=== PATIENT | female | born 1995 | race Hispanic/Latino ===

== ENCOUNTER 2020-05-22 18:38 | Emergency (ER) | payer SELFPAY ==
[2020-05-22] MEDS ORDERED: NALOXONE 2 MG/2 ML INJ IV ONE (20:04)
[2020-05-22] MEDS ORDERED: SODIUM CHLORIDE 0.9% 1000 ML 1,000 ML IV ONE (20:05)
--- NOTE | 2020-05-22 20:25 | Emergency Department Report ---
HPI - HPI HPI: Room 10 The patient is a 24-year-old female present with a chief complaint of altered mental status. Per the patient's mother the patient has recently gone through a divorce has not been taking it well. The mother states she found the patient unresponsive on the floor this evening and there was an empty bottle of [employer] rum the kitchen. The mother states the patient does not consume alc ohol. The mother states there were no missing medications in the home and no pill bottles found near the patient. The mother states the patient has not made any statements regarding suicidal ideation. The patient is grossly obtunded but opens her eyes to sternal rub <CLVIE JONES - Last Filed: 05/22/20 20:21> <COLLINS DE LEON - Last Filed: 05/23/20 04:16> - General Chief Complaint: Alcohol Time Seen by Provider: 05/22/20 19:39 ED Past Medical Hx - Past Medical History Hx Psychiatric Treatment: Yes (depression, anxiety) Additional medical history: seasonal bronchitis - Surgical History Past Surgical History?: No - Family History Family history: no significant - Social History Smoking Status: Former Smoker Substance Use Type: None <CLIVE JONES - Last Filed: 05/22/20 20:21> <COLLINS DE LEON - Last Filed: 05/23/20 04:16> - Medications Home Medications: Home Medications Medication Instructions Recorded Confirmed Last Taken Type Multivitamin with Folic Acid [[facility] 400 mcg PO QDAY #30 tablet 05/23/20 Unknown Rx One Daily Essential Tablet] Potassium Chloride [K-Dur] 20 meq PO BID #20 tab 05/23/20 Unknown Rx ED Review of Systems ROS: Stated complaint: SI ATTEMPT/OVERDOSE Other details as noted in HPI Comment: Unobtainable due to pts medical conditions <CLIVE JONES - Last Filed: 05/22/20 20:21> ROS: Stated complaint: SI ATTEMPT/OVERDOSE Other details as noted in HPI <COLLINS DE LEON - Last Filed: 05/23/20 04:16> Physical Exam - Physical Exam Physical Exam: GENERAL: The patient is well-developed well-nourished female grossly obtunded on stretcher only responding to sternal rub. [] HEENT: Normocephalic. Atraumatic. Patient has moist mucous membranes. NECK: Trachea midline CHEST/LUNGS: Clear to auscultation. There is no respiratory distress noted. HEART/CARDIOVASCULAR: Regular. There is no tachycardia. There is no gallop rub or murmur. ABDOMEN: Abdomen is soft, nontender. Patient has normal bowel sounds. There is no abdominal distention. SKIN: There is no rash. There is no edema. There is no diaphoresis. NEURO: The patient is grossly obtunded but opens eyes and raise his head to sternal rub MUSCULOSKELETAL: There is no evidence of acute injury. <CLIVE JONES - Last Filed: 05/22/20 20:21> - Physical Exam Vital Signs: Vital Signs 05/22/20 05/22/20 05/22/20 20:28 21:00 21:27 Temperature 97.8 F Pulse Rate 75 71 Respiratory 19 19 16 Rate Blood Pressure 111/54 Blood Pressure 111/54 [Right] O2 Sat by Pulse 98 99 Oximetry 05/22/20 05/22/20 05/23/20 22:00 23:00 01:00 Temperature Pulse Rate 79 98 H 78 Respiratory 17 21 16 Rate Blood Pressure 129/69 129/69 98/51 Blood Pressure [Right] O2 Sat by Pulse Oximetry <COLLINS DE LEON - Last Filed: 05/23/20 04:16> ED Course Vital Signs 05/22/20 05/22/20 05/22/20 20:28 21:00 21:27 Temperature 97.8 F Pulse Rate 75 71 Respiratory 19 19 16 Rate Blood Pressure 111/54 Blood Pressure 111/54 [Right] O2 Sat by Pulse 98 99 Oximetry 05/22/20 05/22/20 05/23/20 22:00 23:00 01:00 Temperature Pulse Rate 79 98 H 78 Respiratory 17 21 16 Rate Blood Pressure 129/69 129/69 98/51 Blood Pressure [Right] O2 Sat by Pulse Oximetry - Reevaluation(s) Reevaluation #1: 05/23/20 04:13 Patient is awake, alert, oriented, clinically sober and walks with a steady gait. She tells me "I just drank too much alcohol." She denies physical pain at this time. She denies homicidality and suicidality. She does not want to speak to a psychiatrist or mental health professional. She wants to go home. The patient does not meet criteria for 1013 at this time. Laboratory studies reviewed and appreciated. Patient will be discharged her mother is going to come by and pick her up <MOISESCOLLINS - Last Filed: 05/23/20 04:16> ED Medical Decision Making - Differential Diagnosis Alcohol intoxication, polysubstance abuse, intracranial hemorrhage, <CLIVE JONES - Last Filed: 05/22/20 20:21> - Lab Data Result diagrams: 05/22/20 20:23 05/22/20 20:23 Vital Signs 05/22/20 05/22/20 05/22/20 20:28 21:00 21:27 Temperature 97.8 F Pulse Rate 75 71 Respiratory 19 19 16 Rate Blood Pressure 111/54 Blood Pressure 111/54 [Right] O2 Sat by Pulse 98 99 Oximetry 05/22/20 05/22/20 05/23/20 22:00 23:00 01:00 Temperature Pulse Rate 79 98 H 78 Respiratory 17 21 16 Rate Blood Pressure 129/69 129/69 98/51 Blood Pressure [Right] O2 Sat by Pulse Oximetry Lab Results 05/22/20 05/22/20 05/22/20 Range/Units 20:23 20:23 20:23 WBC 9.1 (4.5-11.0) K/mm3 RBC 4.45 (3.65-5.03) M/mm3 Hgb 11.0 (10.1-14.3) gm/dl Hct 35.6 (30.3-42.9) % MCV 80 (79-97) fl MCH 25 L (28-32) pg MCHC 31 (30-34) % RDW 16.3 H (13.2-15.2) % Plt Count 225 (140-440) K/mm3 Lymph % (Auto) 12.2 L (13.4-35.0) % [place] % (Auto) 6.4 (0.0-7.3) % Eos % (Auto) 0.1 (0.0-4.3) % Baso % (Auto) 0.2 (0.0-1.8) % Lymph # 1.1 L (1.2-5.4) K/mm3 [place] # 0.6 (0.0-0.8) K/mm3 Eos # 0.0 (0.0-0.4) K/mm3 Baso # 0.0 (0.0-0.1) K/mm3 Seg Neutrophils % 81.1 H (40.0-70.0) % Seg Neutrophils # 7.4 (1.8-7.7) K/mm3 Sodium 139 (137-145) mmol/L Potassium 3.2 L (3.6-5.0) mmol/L Chloride 101.9 (98-107) mmol/L Carbon Dioxide 19 L (22-30) mmol/L Anion Gap 21 mmol/L BUN 9 (7-17) mg/dL Creatinine 0.5 L (0.7-1.2) mg/dL Estimated GFR > 60 ml/min BUN/Creatinine Ratio 18 % Glucose 130 H (65-100) mg/dL Calcium 8.5 (8.4-10.2) mg/dL Magnesium (1.7-2.3) mg/dL Total Bilirubin 0.20 (0.1-1.2) mg/dL AST 17 (5-40) units/L ALT 9 (7-56) units/L Alkaline Phosphatase 82 (35-129) units/L Total Creatine Kinase 113 (30-135) units/L CK-MB (CK-2) 1.0 (0.0-4.0) ng/mL CK-MB (CK-2) Rel Index 0.8 (0-4) Troponin T < 0.010 (0.00-0.029) ng/mL Total Protein 7.2 (6.3-8.2) g/dL Albumin 4.1 (3.9-5) g/dL Albumin/Globulin Ratio 1.3 % HCG, Qual (Negative) Urine Color (Yellow) Urine Turbidity (Clear) Urine pH (5.0-7.0) Ur Specific Alpha (1.003-1.030) Urine Protein (Negative) mg/dL Urine Glucose (UA) (Negative) mg/dL Urine Ketones (Negative) mg/dL Urine Blood (Negative) Urine Nitrite (Negative) Urine Bilirubin (Negative) Urine Urobilinogen (<2.0) mg/dL Ur Leukocyte Esterase (Negative) Urine WBC (Auto) (0.0-6.0) /HPF Urine RBC (Auto) (0.0-6.0) /HPF U Epithel Cells (Auto) (0-13.0) /HPF Urine Bacteria (Auto) (Negative) /HPF Urine Mucus /HPF Salicylates (2.8-20.0) mg/dL Urine Opiates Screen Urine Methadone Screen Acetaminophen (10.0-30.0) ug/mL Ur Barbiturates Screen Ur Phencyclidine Scrn Ur Amphetamines Screen U Benzodiazepines Scrn Urine Cocaine Screen U Marijuana (THC) Screen Drugs of Abuse Note Plasma/Serum Alcohol 0.21 H (0-0.07) % 05/22/20 05/22/20 05/22/20 Range/Units 20:23 20:32 20:32 WBC (4.5-11.0) K/mm3 RBC (3.65-5.03) M/mm3 Hgb (10.1-14.3) gm/dl Hct (30.3-42.9) % MCV (79-97) fl MCH (28-32) pg MCHC (30-34) % RDW (13.2-15.2) % Plt Count (140-440) K/mm3 Lymph % (Auto) (13.4-35.0) % [place] % (Auto) (0.0-7.3) % Eos % (Auto) (0.0-4.3) % Baso % (Auto) (0.0-1.8) % Lymph # (1.2-5.4) K/mm3 [place] # (0.0-0.8) K/mm3 Eos # (0.0-0.4) K/mm3 Baso # (0.0-0.1) K/mm3 Seg Neutrophils % (40.0-70.0) % Seg Neutrophils # (1.8-7.7) K/mm3 Sodium (137-145) mmol/L Potassium (3.6-5.0) mmol/L Chloride (98-107) mmol/L Carbon Dioxide (22-30) mmol/L Anion Gap mmol/L BUN (7-17) mg/dL Creatinine (0.7-1.2) mg/dL Estimated GFR ml/min BUN/Creatinine Ratio % Glucose (65-100) mg/dL Calcium (8.4-10.2) mg/dL Magnesium (1.7-2.3) mg/dL Total Bilirubin (0.1-1.2) mg/dL AST (5-40) units/L ALT (7-56) units/L Alkaline Phosphatase (35-129) units/L Total Creatine Kinase (30-135) units/L CK-MB (CK-2) (0.0-4.0) ng/mL CK-MB (CK-2) Rel Index (0-4) Troponin T (0.00-0.029) ng/mL Total Protein (6.3-8.2) g/dL Albumin (3.9-5) g/dL Albumin/Globulin Ratio % HCG, Qual Negative (Negative) Urine Color (Yellow) Urine Turbidity (Clear) Urine pH (5.0-7.0) Ur Specific Alpha (1.003-1.030) Urine Protein (Negative) mg/dL Urine Glucose (UA) (Negative) mg/dL Urine Ketones (Negative) mg/dL Urine Blood (Negative) Urine Nitrite (Negative) Urine Bilirubin (Negative) Urine Urobilinogen (<2.0) mg/dL Ur Leukocyte Esterase (Negative) Urine WBC (Auto) (0.0-6.0) /HPF Urine RBC (Auto) (0.0-6.0) /HPF U Epithel Cells (Auto) (0-13.0) /HPF Urine Bacteria (Auto) (Negative) /HPF Urine Mucus /HPF Salicylates < 0.3 L (2.8-20.0) mg/dL Urine Opiates Screen Urine Methadone Screen Acetaminophen < 5.0 L (10.0-30.0) ug/mL Ur Barbiturates Screen Ur Phencyclidine Scrn Ur Amphetamines Screen U Benzodiazepines Scrn Urine Cocaine Screen U Marijuana (THC) Screen Drugs of Abuse Note Plasma/Serum Alcohol (0-0.07) % 05/22/20 05/22/20 05/23/20 Range/Units Unknown Unknown 02:57 WBC (4.5-11.0) K/mm3 RBC (3.65-5.03) M/mm3 Hgb (10.1-14.3) gm/dl Hct (30.3-42.9) % MCV (79-97) fl MCH (28-32) pg MCHC (30-34) % RDW (13.2-15.2) % Plt Count (140-440) K/mm3 Lymph % (Auto) (13.4-35.0) % [place] % (Auto) (0.0-7.3) % Eos % (Auto) (0.0-4.3) % Baso % (Auto) (0.0-1.8) % Lymph # (1.2-5.4) K/mm3 [place] # (0.0-0.8) K/mm3 Eos # (0.0-0.4) K/mm3 Baso # (0.0-0.1) K/mm3 Seg Neutrophils % (40.0-70.0) % Seg Neutrophils # (1.8-7.7) K/mm3 Sodium (137-145) mmol/L Potassium (3.6-5.0) mmol/L Chloride (98-107) mmol/L Carbon Dioxide (22-30) mmol/L Anion Gap mmol/L BUN (7-17) mg/dL Creatinine (0.7-1.2) mg/dL Estimated GFR ml/min BUN/Creatinine Ratio % Glucose (65-100) mg/dL Calcium (8.4-10.2) mg/dL Magnesium 2.20 (1.7-2.3) mg/dL Total Bilirubin (0.1-1.2) mg/dL AST (5-40) units/L ALT (7-56) units/L Alkaline Phosphatase (35-129) units/L Total Creatine Kinase 120 (30-135) units/L CK-MB (CK-2) (0.0-4.0) ng/mL CK-MB (CK-2) Rel Index (0-4) Troponin T (0.00-0.029) ng/mL Total Protein (6.3-8.2) g/dL Albumin (3.9-5) g/dL Albumin/Globulin Ratio % HCG, Qual (Negative) Urine Color Straw (Yellow) Urine Turbidity Clear (Clear) Urine pH 5.0 (5.0-7.0) Ur Specific Alpha 1.009 (1.003-1.030) Urine Protein <15 mg/dl (Negative) mg/dL Urine Glucose (UA) Neg (Negative) mg/dL Urine Ketones 20 (Negative) mg/dL Urine Blood Lg (Negative) Urine Nitrite Neg (Negative) Urine Bilirubin Neg (Negative) Urine Urobilinogen < 2.0 (<2.0) mg/dL Ur Leukocyte Esterase Neg (Negative) Urine WBC (Auto) 2.0 (0.0-6.0) /HPF Urine RBC (Auto) 15.0 (0.0-6.0) /HPF U Epithel Cells (Auto) 1.0 (0-13.0) /HPF Urine Bacteria (Auto) 1+ (Negative) /HPF Urine Mucus Few /HPF Salicylates (2.8-20.0) mg/dL Urine Opiates Screen Presumptive negative Urine Methadone Screen Presumptive negative Acetaminophen (10.0-30.0) ug/mL Ur Barbiturates Screen Presumptive negative Ur Phencyclidine Scrn Presumptive negative Ur Amphetamines Screen Presumptive negative U Benzodiazepines Scrn Presumptive negative Urine Cocaine Screen Presumptive negative U Marijuana (THC) Screen Presumptive negative Drugs of Abuse Note Disclamer Plasma/Serum Alcohol (0-0.07) % 05/23/20 Range/Units 02:57 WBC (4.5-11.0) K/mm3 RBC (3.65-5.03) M/mm3 Hgb (10.1-14.3) gm/dl Hct (30.3-42.9) % MCV (79-97) fl MCH (28-32) pg MCHC (30-34) % RDW (13.2-15.2) % Plt Count (140-440) K/mm3 Lymph % (Auto) (13.4-35.0) % [place] % (Auto) (0.0-7.3) % Eos % (Auto) (0.0-4.3) % Baso % (Auto) (0.0-1.8) % Lymph # (1.2-5.4) K/mm3 [place] # (0.0-0.8) K/mm3 Eos # (0.0-0.4) K/mm3 Baso # (0.0-0.1) K/mm3 Seg Neutrophils % (40.0-70.0) % Seg Neutrophils # (1.8-7.7) K/mm3 Sodium (137-145) mmol/L Potassium (3.6-5.0) mmol/L Chloride (98-107) mmol/L Carbon Dioxide (22-30) mmol/L Anion Gap mmol/L BUN (7-17) mg/dL Creatinine (0.7-1.2) mg/dL Estimated GFR ml/min BUN/Creatinine Ratio % Glucose (65-100) mg/dL Calcium (8.4-10.2) mg/dL Magnesium (1.7-2.3) mg/dL Total Bilirubin (0.1-1.2) mg/dL AST (5-40) units/L ALT (7-56) units/L Alkaline Phosphatase (35-129) units/L Total Creatine Kinase (30-135) units/L CK-MB (CK-2) (0.0-4.0) ng/mL CK-MB (CK-2) Rel Index (0-4) Troponin T (0.00-0.029) ng/mL Total Protein (6.3-8.2) g/dL Albumin (3.9-5) g/dL Albumin/Globulin Ratio % HCG, Qual (Negative) Urine Color (Yellow) Urine Turbidity (Clear) Urine pH (5.0-7.0) Ur Specific Alpha (1.003-1.030) Urine Protein (Negative) mg/dL Urine Glucose (UA) (Negative) mg/dL Urine Ketones (Negative) mg/dL Urine Blood (Negative) Urine Nitrite (Negative) Urine Bilirubin (Negative) Urine Urobilinogen (<2.0) mg/dL Ur Leukocyte Esterase (Negative) Urine WBC (Auto) (0.0-6.0) /HPF Urine RBC (Auto) (0.0-6.0) /HPF U Epithel Cells (Auto) (0-13.0) /HPF Urine Bacteria (Auto) (Negative) /HPF Urine Mucus /HPF Salicylates (2.8-20.0) mg/dL Urine Opiates Screen Urine Methadone Screen Acetaminophen (10.0-30.0) ug/mL Ur Barbiturates Screen Ur Phencyclidine Scrn Ur Amphetamines Screen U Benzodiazepines Scrn Urine Cocaine Screen U Marijuana (THC) Screen Drugs of Abuse Note Plasma/Serum Alcohol 0.08 H (0-0.07) % <COLLINS DE LEON - Last Filed: 05/23/20 04:16> Critical care attestation.: If time is entered above; I have spent that time in minutes in the direct care of this critically ill patient, excluding procedure time. <CLIVE JONES - Last Filed: 05/22/20 20:21> Critical care attestation.: If time is entered above; I have spent that time in minutes in the direct care of this critically ill patient, excluding procedure time. <COLLINS DE LEON - Last Filed: 05/23/20 04:16> ED Disposition <CLIVE JONES - Last Filed: 05/22/20 20:21> Is pt being admited?: No Does the pt Need Aspirin: No <COLLINS DE LEON - Last Filed: 05/23/20 04:16> Clinical Impression: Alcohol intoxication, Hypokalemia Disposition: DC-01 TO HOME OR SELFCARE Condition: Stable Instructions: Alcohol Intoxication (ED) Additional Instructions: Please exercise caution when consuming alcohol. Long-term consumption of alcohol may cause depressed mental status, disability, paralysis, loss of quality of life. Take the medications as needed and directed. Follow-up with your primary care doctor within the next week. Recommend that patient does not drive or operate motor vehicles until instructed/cleared to do so by her primary care doctor. Please return to the emergency room right away with new pain, worsening pain, migration of pain, projectile vomiting, change in mental status, confusion, inability to tolerate liquid feeds, new, worsened or different symptoms not present on the initial emergency room evaluation Referrals: RENEA MANUEL MD [Staff Physician] - 3-5 Days
[2020-05-22 21:07] LABS: Basophils % (Auto) 0.2 % (0.0-1.8); Eosinophils % (Auto) 0.1 % (0.0-4.3); Hematocrit 35.6 % (30.3-42.9); Lymphocytes # (Auto) 1.1 K/mm3 (1.2-5.4); Lymphocytes % (Auto) 12.2 % (13.4-35.0); Mean Corpuscular HGB Conc 31 % (30-34); Mean Corpuscular Volume 80 fl (79-97); Monocytes # (Auto) 0.6 K/mm3 (0.0-0.8); Monocytes % (Auto) 6.4 % (0.0-7.3); Platelet Count 225 K/mm3 (140-440); Red Blood Count 4.45 M/mm3 (3.65-5.03); Red Cell Distribution Width 16.3 % (13.2-15.2)
[2020-05-22 21:45] LABS: BUN/Creatinine Ratio 18; Blood Urea Nitrogen 9 mg/dL (7-17)
[2020-05-22 21:46] LABS: Alanine Aminotransferase 9 units/L (7-56); Albumin 4.1 g/dL (3.9-5); Calcium 8.5 mg/dL (8.4-10.2)
[2020-05-22 21:47] LABS: Hemolysis Index 8
[2020-05-22 22:06] LABS: Bacteria,Urine 1+ /HPF (Negative); Bilirubin,Urine NEG (Negative); Blood,Urine LG (Negative); Color,Urine Straw (Yellow); Mucus,Urine FEW /HPF; Protein,Urine <15 mg/dL mg/dL (Negative); Urobilinogen,Urine < 2.0 mg/dL (<2.0)
[2020-05-22 22:17] LABS: Amphetamine Screen,Urine PRESUMPTIVE NEGATIVE; Benzodiazepines Screen,Urine PRESUMPTIVE NEGATIVE; Cannabinoid Screen,Urine PRESUMPTIVE NEGATIVE; Cocaine Screen,Urine PRESUMPTIVE NEGATIVE; Methadone Screen,Urine PRESUMPTIVE NEGATIVE; Opiate Screen,Urine PRESUMPTIVE NEGATIVE
[2020-05-22] MEDS ORDERED: POTASSIUM CHLORIDE ER 20 MEQ TAB PO ONE (22:19)
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
[2020-05-23 04:58] VITALS: BP 100/62
== END 2020-05-23 04:57 | disposition home or self-care (01) ==
LOC: ED 18:38
DX: F10.920 Alcohol use, unspecified with intoxication, uncomplicated (principal); E87.6 Hypokalemia; F32.89 Other specified depressive episodes; F41.9 Anxiety disorder, unspecified; Z87.891 Personal history of nicotine dependence
CPT/HCPCS: 36415; 70450; 80053; 80307; 81001; 82550; 82553; 83735; 84484; 84703; 85025; 96374; 99285; J2310; J7030; 80320; G0480

== ENCOUNTER 2021-08-20 20:21 | Emergency (ER) | payer OTHER ==
[2021-08-20 23:17] VITALS: BP 130/83
[2021-08-20] MEDS ORDERED: METOCLOPRAMIDE 10 MG TAB PO ONE (23:23)
[2021-08-20] MEDS ORDERED: diphenhydrAMINE 25 MG CAP PO ONE (23:23)
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
--- NOTE | 2021-08-21 00:44 | Emergency Department Report ---
ED Head Trauma HPI - General Chief complaint: Skin/Abscess/Foreign Body Stated complaint: HEAD INJURY Time Seen by Provider: 08/20/21 23:18 Source: patient Mode of arrival: Ambulatory Limitations: No Limitations - History of Present Illness Initial comments: This is a 25-year-old female nontoxic, well nourished in appearance, no acute signs of distress presents to the ED with c/o of acute headache that started last night. Patient stated that while at home she injured frontal scalp area with a safe and had near syncopal episode. Patient describes headache as to front scalp with level of 8 out of 10. Patient denies thunderclap headache. Patient denies any radiation of pain. Patient other any injuries or trauma. Patient denies any neck pain, mid back or lower back pains. Patient denies any visual changes. Patient denies worse headache. Patient denies any numbness, tingling, fever, chills, nausea, vomiting, chest pain, shortness of breath, stiff neck. Patient denies facial drooping or one sided weakness. Patient denies any radiation of pain. Denies any allergies or significant PMH. MD Complaint: head injury (This is a 30-year-old male nontoxic, well nourished in appearance, no acute signs of distress presents to the ED with c/o of acute headache and neck pain that started today. Patient stated that while at work he injured his head against a metal filiberto and had near syncopal episode. Patient describes h) -: days(s) Location: frontal Loss of Consciousness: no Previous Trauma to this Area: No Place: home Radiation: none Severity: mild Severity scale (0 -10): 8 Quality: aching Consistency: constant Other Injuries: none Associated Symptoms: denies other symptoms. denies: confusion, amnesia, repeti tive questioning, vision changes, nausea, vomiting, vertigo, syncope, numbness, weakness, tingling, neck pain - Related Data Previous Rx's Medication Instructions Recorded Last Taken Type Multivitamin with Folic Acid [[facility] 400 mcg PO QDAY #30 tablet 05/23/20 Unknown Rx One Daily Essential Tablet] Potassium Chloride [K-Dur] 20 meq PO BID #20 tab 05/23/20 Unknown Rx Naproxen 500 mg PO Q12H PRN #12 tablet 08/21/21 Unknown Rx Allergies/Adverse reactions: Allergies Allergy/AdvReac Type Severity Reaction Status Date / Time No Known Allergies Allergy Verified 08/20/21 23:11 ED Review of Systems ROS: Stated complaint: HEAD INJURY Other details as noted in HPI Comment: All other systems reviewed and negative Constitutional: denies: chills, fever Eyes: denies: eye pain, eye discharge, vision change ENT: denies: ear pain, throat pain Respiratory: denies: cough, shortness of breath, wheezing Cardiovascular: denies: chest pain, palpitations Endocrine: no symptoms reported Gastrointestinal: denies: abdominal pain, nausea, diarrhea Genitourinary: denies: urgency, dysuria, discharge Musculoskeletal: denies: back pain, joint swelling, arthralgia Skin: denies: rash, lesions Neurological: headache. denies: weakness, numbness, paresthesias, confusion, abnormal gait, vertigo Psychiatric: denies: anxiety, depression Hematological/Lymphatic: denies: easy bleeding, easy bruising ED Past Medical Hx - Past Medical History Previous Medical History?: No Hx Psychiatric Treatment: Yes (depression, anxiety) Additional medical history: seasonal bronchitis - Social History Smoking Status: Former Smoker Substance Use Type: None - Medications Home Medications: Home Medications Medication Instructions Recorded Confirmed Last Taken Type Multivitamin with Folic Acid [[facility] 400 mcg PO QDAY #30 tablet 05/23/20 Unknown Rx One Daily Essential Tablet] Potassium Chloride [K-Dur] 20 meq PO BID #20 tab 05/23/20 Unknown Rx Naproxen 500 mg PO Q12H PRN #12 tablet 08/21/21 Unknown Rx ED Physical Exam - General Limitations: No Limitations General appearance: alert, in no apparent distress - Head Head exam: Present: normocephalic - Expanded Head Exam Expanded Head exam: Present: hematoma, general tenderness. Absent: laceration, abrasion, contusion, racoon eyes, cash's sign, tenderness of temporal artery, CSF rhinorrhea, CSF otorrhea 1 - small hematoma present here - Eye Eye exam: Present: normal appearance, PERRL, EOMI - Neck Neck exam: Present: normal inspection, full ROM. Absent: lymphadenopathy - Respiratory Respiratory exam: Absent: respiratory distress - Cardiovascular Cardiovascular Exam: Present: regular rate - Extremities Exam Extremities exam: Present: full ROM - Back Exam Back exam: Present: normal inspection, full ROM. Absent: tenderness, CVA tenderness (R), CVA tenderness (L), muscle spasm, paraspinal tenderness, vertebral tenderness, rash noted - Neurological Exam Neurological exam: Present: alert, oriented X3, normal gait - Expanded Neurological Exam Expanded Patient oriented to: Present: person, place, time Cranial nerves: EOM's Intact: Normal, Facial Sensation: Normal Cerebellar function: Finger to Nose: Normal Upper motor neuron: Pronator Drift: Normal, Sensory Extinction: Normal Motor strength exam: RUE: 5, LUE: 5, RLE: 5, LLE: 5 Best Eye Response (Minier): (4) open spontaneously Best Motor Response (Tim): (6) obeys commands Best Verbal Response (Tim): (5) oriented Tim Total: 15 - Psychiatric Psychiatric exam: Present: normal affect, normal mood - Skin Skin exam: Present: warm, dry, intact, normal color. Absent: rash ED Course Vital Signs 08/20/21 23:15 Temperature 98.9 F Pulse Rate 72 Respiratory 16 Rate Blood Pressure 130/83 [Left] O2 Sat by Pulse 98 Oximetry - Reevaluation(s) Reevaluation #1: 08/21/21 00:45 Patient is speaking in full sentences with no signs of distress noted. - Radiology Data [facility] [address] [place] [address] Cat Scan Report Signed Patient: SUZANNE CHRISTENSEN MR#: [id number] : 1995 Acct:[id number] Age/Sex: 25 / F ADM Date: 08/20/21 Loc: ED Attending Dr: Ordering Physician: CECILY SCHROEDER NP Date of Service: 08/20/21 Procedure(s): CT head/brain wo con Accession Number(s): [id number] cc: CECILY SCHROEDER NP CT head/brain wo con INDICATION / CLINICAL INFORMATION: 25 years Female; Head pain, Status-Post direct blow by safe w/ near syncope. TECHNIQUE: Routine CT head without contrast. All CT scans at this location are performed using CT dose reduction for ALARA by means of automated exposure control. COMPARISON: 05/22/2020 FINDINGS: BRAIN / INTRACRANIAL CONTENTS: No acute hemorrhage, mass effect, midline shift, hydrocephalus, or acute, large territorial infarct. No signs of significant atrophy or chronic infarct. No significant white matter abnormality seen. CRANIOCERVICAL JUNCTION: No significant abnormality. ORBITS: No significant abnormality of visualized orbits. SINUSES / MASTOIDS: Visualized paranasal sinuses and mastoid air cells are essentially clear. ADDITIONAL FINDINGS: None. IMPRESSION: 1. No focal mass, hemorrhage, hydrocephalus, or a cute, large territorial infarct. Signer Name: Kali Raymundo MD, III Signed: 08/21/2021 12:01 AM Workstation Name: [id number] Transcribed By: HR Dictated By: Kali Raymundo MD Electronically Authenticated By: Kali Raymundo MD Signed Date/Time: 08/21/21 0001 DD/ [id number] TD/TT: - Medical Decision Making 25-year-old female that presents with head injury. Patient is stable and was examined by me. Patient is notified of the CT results with no questions noted by the patient. Patient received Benadryl and Reglan for pain which stated symptoms improved and subsided. Stated family member will drive patient home after discharge. Patient discharged with naproxen. Otherwise physical exam is unremarkable. Patient was instructed to my follow at time of discharge, the patient does not seem toxic or ill in appearance. No acute signs of distress noted. Patient agrees to discharge treatment plan of care. No further questions noted by the patient. - NEXUS Criteria Focal neurological deficit present: No Midline spinal tenderness present: No Altered level of consciousness: No Intoxication present: No Distracting injury present: No NEXUS results: C-Spine can be cleared clinically by these results. Imaging is not required. Critical care attestation.: If time is entered above; I have spent that time in minutes in the direct care of this critically ill patient, excluding procedure time. ED Disposition Clinical Impression: Head injury Qualifiers: Encounter type: initial encounter Qualified Code(s): S09.90XA - Unspecified injury of head, initial encounter Scalp contusion Qualifiers: Encounter type: initial encounter Qualified Code(s): S00.03XA - Contusion of scalp, initial encounter Disposition: HOME / SELF CARE / HOMELESS Is pt being admited?: No Does the pt Need Aspirin: No Condition: Stable Instructions: Facial or Scalp Contusion Additional Instructions: Follow-up with a primary care doctor in 3-5 days or if symptoms worsen and continue return to emergency room as soon as possible. Prescriptions: Naproxen 500 mg PO Q12H PRN #12 tablet PRN Reason: Pain , Severe (7-10) Referrals: PRIMARY CAREMD [Referring] - 3-5 Days RENEA MANUEL MD [Staff Physician] - 3-5 Days Forms: Work/School Release Form(ED) Time of Disposition: 00:47
== END 2021-08-21 01:25 | disposition home or self-care (01) ==
LOC: ED 20:21
DX: S00.03XA Contusion of scalp, initial encounter (principal); F32.9 Major depressive disorder, single episode, unspecified; F41.9 Anxiety disorder, unspecified; Z79.899 Other long term (current) drug therapy; X58.XXXA Exposure to other specified factors, initial encounter; Y93.89 Activity, other specified; Y92.89 Other specified places as the place of occurrence of the external cause; Y99.8 Other external cause status
CPT/HCPCS: 70450; 99283